=== PATIENT | female | born 1980 | race Caucasian/White ===

== ENCOUNTER 2017-02-14 01:46 | Emergency (ER) | payer OTHER ==
[2017-02-14 02:20] LABS: BASOPHIL# 0.1 X 10^3uL (0.0-0.1); BASOPHILS 0.5 % (0.0-2.0); EOSINOPHILS 0.4 % (0.0-6.0); HEMOGLOBIN 14.2 g/dL (12.0-16.0); LYMPHOCYTES 11.8 % (20.0-40.0); LYMPHOCYTES# 1.4 X 10^3uL (0.8-3.8); MEAN CELL VOLUME 88.3 fL (80.0-100.0); MEAN CORPUS. HGB CONCENTRATION 34.7 g/dL (32.0-36.0); MEAN CORPUSCULAR HEMOGLOBIN 30.6 pg (29.0-35.0); MEAN PLATELET VOLUME 8.2 fL (7.4-10.4); MONOCYTES# 0.4 X 10^3uL (0.2-1.0); NEUTROPHILS 84.3 % (54.0-75.0); NEUTROPHILS# 9.8 X 10^3uL (2.6-6.7); PLATELET COUNT 247 X 10^3uL (130-440); RED BLOOD COUNT 4.64 X 10^6uL (4.20-6.10); RED CELL DISTRIBUTION WIDTH 12.9 % (11.5-14.5); WHITE BLOOD COUNT 11.7 X 10^3uL (3.9-10.7)
[2017-02-14 02:29] LABS: A/G RATIO 1.2; ALBUMIN 4.4 g/dL (3.5-5.0); ALKALINE PHOSPHATASE 77 U/L (38-126); ALT 29 U/L (9-52); AST 22 U/L (14-36); BILIRUBIN, TOTAL 0.7 mg/dL (0.2-1.3); BLOOD UREA NITROGEN 6 mg/dL (7-17); CALCIUM 9.3 mg/dL (8.4-10.2); CHLORIDE 110 mmol/L (98-107); CREATININE 0.8 mg/dL (0.5-1.0); EST GLOMERULAR FILTRATION RATE > 60 mL/min; GLUCOSE 167 mg/dL (70-100); LIPASE 40 U/L (23-300); POTASSIUM 4.1 mmol/L (3.5-5.1); SODIUM 141 mmol/L (137-145)
--- NOTE | 2017-02-14 03:21 | ER PHYSICIAN DOCUMENTATION ---
Physician Documentation [facility] Name:Genesis Jacob Age:36 yrs Sex:Female :1980 Arrival Date:02/14/2017 Time:01:46 Bed4 Private MD:Physician, No ED Lawrence Brady Disposition: 02/14/17 02:48 Discharged to Home/Self Care. Impression: Constipation. - Condition is Good. - Discharge Instructions: CONSTIPATION (Adult). - Medical Reconciliation form form. - Follow up: Private Physician; When: 2 - 3 days; Reason: Recheck today's complaints, Continuance of care. - Problem is new. - Symptoms have improved. - Notes: EAT A HIGH FIBER DIET. USE MAG CITRATE DAILY UNTIL YOUR BOWEL HABITS NORMALIZE. RETURN HERE FOR WORSENING PAIN, FEVER, VOMITING OR IF WORSE IN ANY WAY. HPI: 02/14 01:51 This 36 yrs old Female presents to ER via Walk In with complaints of tl1 Abdominal Pain and constipation.. 02:10 This 36 yrs old Female presents to ER via Walk In with complaints of tl1 Abdominal Pain. 01:51 The patient presents with abdominal pain. tl1 02:10 The patient presents with abdominal pain abdominal distention in the upper abdomen, tl1 constipation, the patient or guardian reports hard stools, has tried to treat at home, with magnesium citrate. Onset: The symptoms/episode began/occurred gradually, 7 day(s) ago. Associated signs and symptoms: Pertinent positives: nausea, Pertinent negatives: diarrhea, vomiting. The symptoms are described as constant, crampy, waxing/waning. Severity of pain: At its worst the pain was moderate in the emergency department the pain is unchanged. This patient does not have any risk factors related to abdominal pain. She is from [facility], here camping with her family in a pop up camper. Diet is not her typical. 4 days ago she noted intermittent crampy pain after not having a BM for the prior 3 days. Last night she tried a bottle of Mag Citrate,and another 1/2 bottle this afternoon, but she has passed only a small amount of stool, w/o relief of her pain. For the last 2 nights she has been unable to sleep much, due to the nearly constant discomfort and bloating.. 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 - Ebola Screening: : Patient negative for fever greater than or equal to 101.5 degrees Fahrenheit, and additional compatible Ebola Virus Disease symptoms. Patient denies exposure to infectious person. Patient denies travel to an Ebola-affected area in the 21 days before illness onset. No symptoms or risks identified at this time. . - Immunization history: Flu Vaccine < 1 year. - Social history: Smoking status: Patient states was never smoker of tobacco. ROS: 02:41 Abdomen/GI: Positive for nausea, constipation, abdominal cramps, abdominal distension. tl1 02:41 All other systems are negative. Exam: 02:41 Constitutional: The patient appears in no acute distress, alert, awake, tl1 non-diaphoretic, non-toxic, well developed, well hydrated, well groomed, well nourished. 02:41 Head/face: Exam is negative for acute changes. 02:41 Neck: ROM/movement: is normal, is supple. 02:41 Cardiovascular: Rate: normal. 02:41 Respiratory: Respirations: normal. 02:41 Abdomen/GI: Inspection: abdomen appears normal, Bowel sounds: diminished, Palpation: soft, moderate abdominal tenderness, in the right upper quadrant and left upper quadrant, mass, is not appreciated, rebound tenderness, is not appreciated, voluntary guarding, is not appreciated, Rectal exam: rectal tone normal, Stool: normal, Residue on the glove was clear, w/o gross blood; there was no paopable stool in the vault., the exam is chaperoned by the nurse, Indicators: 02:41 : CVA tenderness, is absent. Vital Signs: 01:50 BP 139 / 70; Pulse 101; Resp 20; Temp 98(O); Pulse Ox 91% ; Weight 65.77 kg; Height 5 bw2 ft. 4 in. (162.56 cm); Pain 5/10; 03:18 BP 160 / 74; Pulse 99; Resp 20; Temp 98.2; Pulse Ox 91% ; Pain 0/10; bw2 01:50 Body Mass Index 24.89 (65.77 kg, 162.56 cm) bw2 MDM: 01:51 Patient medically screened. tl1 02:44 Differential diagnosis: constipation, biliary disease, pancreatitis, bowel obstruction, tl1 appendicitis, diverticular disease. Data reviewed: vital signs, nurses notes, lab test result(s), amylase and lipase, CBC, electrolytes, hepatic panel, and as a result, I will discharge patient. Test interpretation: by ED physician or midlevel provider: plain radiologic studies. Counseling: I had a detailed discussion with the patient and/or guardian regarding: the historical points, exam findings, and any diagnostic results supporting the discharge/admit diagnosis, lab results, radiology results, the need for outpatient follow up, to return to the emergency department if symptoms worsen or persist or if there are any questions or concerns that arise at home. Response to treatment: the patient's symptoms have markedly improved after treatment, and as a result, I will discharge patient. 02/14 02:21 Order name: CBC AUTO DIF, MDIF/RMOR IF IND; Complete Time: 02:47 EDMS 02/14 02:45 Interpretation: WHITE BLOOD COUNT 11.7; HEMOGLOBIN 14.2; HEMATOCRIT 41.0; PLATELET tl1 COUNT 247; NEUTROPHILS 84.3. 02/14 02:30 Order name: HCG, SERUM; Complete Time: 02:47 EDMS 02/14 02:31 Order name: COMPREHENSIVE METABOLIC PANEL; Complete Time: 02:47 EDMS 02/14 02:46 Interpretation: Normal Except: GLUCOSE 167. tl1 02/14 02:31 Order name: LIPASE; Complete Time: 02:47 EDMS 02/14 02:46 Interpretation: Normal: LIPASE 40. tl1 02/14 02:24 Order name: ABDOMEN; 2V DECUB/ERECT [id number]; Complete Time: 02:47 EDMS 02/14 02:46 Interpretation: Large amount of stool extending to the cecum, c/w constipation. No AFL tl1 OR FA. 02/14 11:00 Order name: ABDOMEN; 2V DECUB/ERECT [id number] EDMS Dispensed Medications: No medications were administered Signatures: Lawrence Lee MD MD tl1 Nicole Burleson 2
--- NOTE | 2017-02-14 03:21 | ER NURSING DOCUMENTATION ---
Nurse's Notes [facility] Name:Genesis Jacob Age:36 yrs Sex:Female :1980 Arrival Date:02/14/2017 Time:01:46 Bed4 Private MD:Alondra Condon Diagnosis:Constipation Presentation: 02/14 01:47 Presenting complaint: Patient states: pt states she has been constipated while bw2 traveling. pt states she has taken mag citraite with little relief. pt denies nausea or vomiting. Transition of care: Home. 01:47 Acuity: MARLYN 3 bw2 01:47 Method Of Arrival: Walk In [facility] Triage Assessment: 01:49 General: Appears in no apparent distress, Behavior is anxious. Pain: Complains of pain bw2 in genralized abdominal. GI: Reports constipation. 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 - Ebola Screening: : Patient negative for fever greater than or equal to 101.5 degrees Fahrenheit, and additional compatible Ebola Virus Disease symptoms. Patient denies exposure to infectious person. Patient denies travel to an Ebola-affected area in the 21 days before illness onset. No symptoms or risks identified at this time. . - Immunization history: Flu Vaccine < 1 year. - Social history: Smoking status: Patient states was never smoker of tobacco. Screenin:52 Infectious Disease Risk None. Abuse screen: Denies threats or abuse. Denies injuries bw2 from another. Nutritional screening: No deficits noted. Assessment: 01:52 See Triage Assessment done by same RN. bw2 03:19 GI: Bowel sounds present X 4 quads. Abd is soft X 4 quads. bw2 Vital Signs: 01:50 BP 139 / 70; Pulse 101; Resp 20; Temp 98(O); Pulse Ox 91% ; Weight 65.77 kg; Height 5 bw2 ft. 4 in. (162.56 cm); Pain 5/10; 03:18 BP 160 / 74; Pulse 99; Resp 20; Temp 98.2; Pulse Ox 91% ; Pain 0/10; bw2 01:50 Body Mass Index 24.89 (65.77 kg, 162.56 cm) bw2 ED Course: 01:47 Patient arrived in ED. em2 01:47 Physician, No is Private Physician. em2 01:47 Nicole Burleson is Primary Nurse. bw2 01:49 Triage completed. bw2 01:51 Lawrence eLe MD is Attending Physician. tl1 01:52 Valuables Remains with patient Bed in low position. bw2 02:15 Patient moved to radiology. ms 02:24 ABDOMEN; 2V DECUB/ERECT [id number] In Process Unspecified. EDMS 02:24 Patient moved back from radiology. ms 02:42 soap suds enema administered. pt tolerated well. bw2 Administered Medications: No medications were administered Outcome: 02:48 Discharge ordered by . tl1 03:18 Discharged to home ambulatory. bw2 03:18 Condition: good 03:18 Discharge instructions given to patient, Instructed on discharge instructions, follow up and referral plans. Demonstrated understanding of instructions. 03:20 Patient left the ED. bw2 02/15 13:32 Discharge F/U Call: Unable to reach: no answer lb Signatures: Dispatcher [employer] EDCielo Shelton ms Fabien-reg, Mary Grace-reg em2 Lawrence Lee MD MD tl1 Nicole Burleson bw2 Melinda Peterson lb
--- NOTE | 2017-02-14 10:09 | RADIOLOGY REPORT ---
Two views of the abdomen without prior films for comparison demonstrate a normal bowel gas pattern. A moderate amount of retained fecal material is seen throughout the colon. No pathologic calcifications or free air are identified. IMPRESSION: Moderate retained fecal material throughout the colon. MTDD
== END 2017-02-14 03:20 | disposition home or self-care (01) ==
LOC: ER 01:46
DX: K59.00 Constipation, unspecified (principal); R14.0 Abdominal distension (gaseous); R11.0 Nausea; R10.11 Right upper quadrant pain; R10.12 Left upper quadrant pain
CPT/HCPCS: 74020; 80053; 83690; 84703; 85025; 99283